=== PATIENT | female | born 1980 | race Caucasian/White ===

== ENCOUNTER 2020-05-29 16:13 | Outpatient (CLI) | payer OTHER, SELFPAY ==
--- NOTE | ~2020-05-29 | MM_ITS ---
EXAMINATION: MM screening drew BI w shelly HISTORY: Screening mammogram TECHNIQUE: Craniocaudal and mediolateral oblique 3-D tomosynthesis images were obtained and synthetic 2-D images were generated. CAD analysis was submitted and interpreted. COMPARISON: None, baseline BREAST PARENCHYMAL COMPOSITION: The breasts are heterogeneously dense, which may obscure small masses . FINDINGS: There is no evidence of suspicious mass, calcification, or architectural distortion to sugg est malignancy in either breast. IMPRESSION: 1. No mammographic evidence of malignancy. 2. Recommend routine screening mammography in one year. BI-RADS Category 1: Negative Reviewed, dictated and finalized at location A. IC RELATIONS COUNSELOR
== END 2020-05-29 16:14 | disposition home or self-care (01) ==
PROVIDERS: Visit Provider Obstetrics & Gynecology
DX: Z12.31 Encounter for screening mammogram for malignant neoplasm of breast (principal)
CPT/HCPCS: 77063; 77067

== ENCOUNTER 2022-06-27 11:11 | Outpatient (CLI) | payer OTHER, SELFPAY ==
--- NOTE | ~2022-06-27 | MM_ITS ---
EXAMINATION: MM screening drew BI w shelly HISTORY: Screening TECHNIQUE: Craniocaudal and mediolateral oblique 3-D tomosynthesis images were obtained and synthetic 2-D images were generated. CAD analysis was submitted and interpreted. COMPARISON: 05/29/2020 BREAST PARENCHYMAL COMPOSITION: The breasts are heterogeneously dense, which may obscure small masses . FINDINGS: There is no evidence of suspicious mass, calcification, or architectural distortion to sugg est malignancy in either breast. There has been no suspicious interval change. IMPRESSION: 1. No mammographic evidence of malignancy. 2. Recommend routine screening mammography in one year. BI-RADS Category 1: Negative Reviewed, dictated and finalized at location B. MIZE ARCHITECT
== END 2022-06-27 11:12 | disposition home or self-care (01) ==
LOC: ANHIMG 11:13
PROVIDERS: PCP Physician Assistant Medical; Visit Provider Obstetrics & Gynecology
DX: Z12.31 Encounter for screening mammogram for malignant neoplasm of breast (principal)
CPT/HCPCS: 77063; 77067

== ENCOUNTER 2022-08-25 16:36 | Emergency (ER) | payer OTHER, SELFPAY ==
--- NOTE | 2022-08-25 16:43 | ED.URI ---
HPI - URI/Sore Throat General Chief Complaint: Upper Respiratory Infection Stated Complaint: sore throat, back pain Time Seen by Provider: 08/25/22 16:44 Source: patient Mode of arrival: ambulatory Limitations: no limitations History of Present Illness HPI Narrative: Ms. Paige is a 41-year-old female patient presenting to the clinic today with complaints sore throat and back ache times 4 days. She reports no fever or chills. She reports that her son had tested positive for strep on Thursday. She does report some nasal congestion. MD elicited complaint: sore throat and nasal congestion Related Data Home Medications Medication Instructions Recorded Confirmed clonazepam 0.5 mg tablet 0.5 mg PO HS 08/25/22 08/25/22 etonogestrel 0.12 mg-ethinyl 1 vag ring vaginal MONTHLY 08/25/22 08/25/22 estradiol 0.015 mg/24 hr vaginal ring (EluRyng) Allergies Allergy/AdvReac Type Severity Reaction Status Date / Time No Known Allergies Allergy Mild Unverified 08/25/22 16:42 Review of Systems Review of Systems: Pertinent positives per HPI. Patient denies any fever, chills, rash, headache, visual changes, dizziness, cough, shortness of breath, chest pain, palpitations, nausea, vomiting, diarrhea, constipation, abdominal pain, or any urinary issues. PMFSH Comments At the time of my signature, I reviewed and agree with the nursing past medical, surgical, social, and family history. There is no relevant family history pertinent to the patient complaint. Exam Narrative: General: Well-developed, well nourished, in no apparent distress Head: Normocephalic, atraumatic Eyes: Pupils equally round and reactive to light bilaterally, EOM intact, sclera and conjunctive clear, no discharge, lids normal Ears: TMs intact and clear, ear canals clear, no drainage, grossly hearing normal. Nose: Nares patent, no discharge, no inflammation, no sinus tenderness. Mouth: Oral pharynx without lesions or masses, good dentition, MMM. Oropharynx reveals bilateral tonsillar enlargement Neck: Supple, trachea midline, enlargement of anterior cervical nodes, no thyroid masses or goiter palpable. Cardio: Regular rate and rhythm, s1 and s2 normal, no murmur appreciated. Resp: Clear to auscultation bilaterally, no rhonchi, rales, wheezing or rubs Course Course Emergency Course: Portions of this record may have been created with voice recognition software. Level of Care: Express Care Visit Vital Signs Vital signs: Vital Signs Temperature 36.8 C 08/25/22 16:51 Pulse Rate 91 08/25/22 16:51 Respiratory Rate 16 08/25/22 16:51 Blood Pressure 125/81 08/25/22 16:51 Pulse Oximetry 100 08/25/22 16:51 Temperature 36.8 C 08/25/22 16:51 Pulse Rate 91 08/25/22 16:51 Respiratory Rate 16 08/25/22 16:51 Blood Pressure 125/81 08/25/22 16:51 Pulse Oximetry 100 08/25/22 16:51 Vital signs reviewed MDM - URI/Sore Throat MDM Narrative Medical decision making narrative: At the time of visit patient is resting comfortably on the exam table. Strep screen is negative in the clinic today. Will send for culture. I suspect patient has URI/pharyngitis/viral syndrome. Supportive measures were discussed with the patient she voiced understanding discharge instructions and agrees to treatment plan. Differential Diagnosis Differential diagnosis: Likely sinusitis, viral infection, influenza and pharyngitis Lab Data Labs: Strep Screen Presumptive Negative *(Reference Range: Negative)* Discharge Plan Discharge Clinical Impression: Viral infection Pharyngitis Qualifiers: Pharyngitis/tonsillitis etiology: unspecified etiology Qualified Code(s): J02.9 - Acute pharyngitis, unspecified Upper respiratory infection Qualifiers: URI type: unspecified URI Qualified Code(s): J06.9 - Acute upper respiratory infection, unspecified Patient Disposition: Home, Self-Care
[2022-08-25 16:51] VITALS: BP 125/81; PULSE 91; RESP 16; TEMP 36.8; O2SAT 100
== END 2022-08-25 17:04 | disposition home or self-care (01) ==
PROVIDERS: Emergency Provider Nurse Practitioner Family; PCP Physician Assistant Medical
DX: B34.9 Viral infection, unspecified (principal); J02.9 Acute pharyngitis, unspecified; J06.9 Acute upper respiratory infection, unspecified; F41.9 Anxiety disorder, unspecified; F41.0 Panic disorder [episodic paroxysmal anxiety]
CPT/HCPCS: 87081; 87880; 99213; G0463

== ENCOUNTER 2024-05-19 13:21 | Outpatient (CLI) | payer OTHER, SELFPAY ==
[2024-05-19 14:05] LABS: Hematocrit 41.8 % (37.0-47.0); Hemoglobin 13.9 g/dL (12.0-15.0)
== END 2024-05-19 13:22 | disposition home or self-care (01) ==
LOC: ANHSURGERY 13:24
PROVIDERS: PCP Registered Nurse; Visit Provider Obstetrics & Gynecology
DX: R58 Hemorrhage, not elsewhere classified (principal)
CPT/HCPCS: 36415; 85014; 85018

== ENCOUNTER 2024-05-27 04:45 | Day surgery (SDC) | payer OTHER, SELFPAY ==
[2024-05-18 13:54] VITALS: BMI 22.4
--- NOTE | 2024-05-18 14:03 | SUR.PREOP ---
Report to the Outpatient Waiting Room, entrance under the green pavilion located off [facility], at time 0630 on date 05/27/24. Planned Procedure Time: 0830.? Time changes happen often and if your time is changed the preop area will call you the afternoon before. - You and your visitor will be asked to self-screen and do not enter if you have any COVID symptoms. Please call surgeon if you need to reschedule. - A mask is optional within the hospital at this time. Patients may have clear liquids (water, carbonated beverages, clear teas, apple juice) until 3 hours prior to surgery with a maximum of 20 ounces. - No food from midnight until time of surgery and no smoking - Infants may have breast milk until 4 hours before surgery, formula 6 hours prior to surgery. - Children will be allowed to drink immediately following surgery.? If applicable, please bring a bottle or sippy cup to assist with drinking. Juice, water, soda, and popsicles are readily available.? For infants on formula, please bring formula the day of surgery.? Pacifiers are allowed. Take only the following medications with a SIP of water on the morning of surgery: ___duloxetine, control pill DO NOT STOP ANY OF YOUR OTHER PRESCRIPTION MEDICATIONS PRIOR TO SURGERY EXCEPT THE FOLLOWING Medications to discontinue per physician vitamins for 3 days Date to take last dose Please no make-up, nail faroese, hairspray, perfume, deodorant, or body powder the day of surgery.? No jewelry (including any body piercings) or valuables the day of surgery, leave them at home.? Please take a shower or bath the night before, or the morning of, surgery with an antibacterial soap.? Wear comfortable, loose fitting clothing.? Children are encouraged to wear pajamas. - Jewelry must be removed prior to entering the operating room.? Rings and piercings that are not removed may be cut off. - The hospital will not accept responsibility for valuables.? - Please leave all valuables, including medications, at home the day of surgery. If you are going home after surgery, a licensed lifter driver must drive you home.? - NO public transportation without another adult if you receive anesthesia. - We recommend that an adult stay with you for 24 hours following discharge. - We also recommend that you do not drive, make important decision, drink alcoholic beverages, or take any drugs that were not prescribed by your health care provider for at least 24 hours after your discharge time. For Pediatric surgeries, we recommend two adults accompany the child home. Follow any additional instructions given to you from your surgeon. Telephone instructions given to ___patient___and asked if any additional questions and then verbalized understanding. Patient advised to call surgeon office or pre surgery nurse liaison [phone] if any additional questions.
--- NOTE | 2024-05-25 11:31 | P.HP_ITS ---
H&P: HPI History of Present Illness Date/Time: 05/25/24 11:31 Chief Complaint: Excessive vaginal bleeding Narrative: 43-year-old female admitted for hysteroscopy dilatation curettage and Gissell ablation. She had 3 vaginal deliveries. She uses vasectomy for control she will not undergo tubal ligation but understands that this is not a form of control. Risks and benefits reviewed including not exclusive of , aspiration pneumonia, bleeding, transfusion, perforation injury to bowel, bladder, ureters, or other internal organs with need for open laparotomy. She received the ACOG handout entitled hysteroscopy and dilatation curettage respectively. She had all questions answered and asked to proceed PENDING SALE TO [facility] Social History Social History Smoking status: Never smoker Living arrangements: with family Meds Home Medications and Allergies Home Medications Medication Instructions Recorded Confirmed Type erenumab-aooe 70 mg/mL 70 mg subcut MONTHLY #1 mL 08/13/22 05/18/24 Rx subcutaneous auto-injector (Aimovig Autoinjector) clonazepam 0.5 mg tablet 0.5 mg PO HS 08/25/22 05/18/24 History etonogestrel 0.12 mg-ethinyl 1 vag ring vaginal MONTHLY 08/25/22 05/18/24 History estradiol 0.015 mg/24 hr vaginal ring (EluRyng) Allergy Capsule 1 tab-cap BYMOUTH DAILY 05/18/24 05/18/24 History duloxetine 30 mg capsule,delayed 30 mg PO DAILY 05/18/24 05/18/24 History release duloxetine 60 mg capsule,delayed 60 mg PO DAILY 05/18/24 05/18/24 History release multivitamin 1 tablet PO DAILY 05/18/24 05/18/24 History rizatriptan 10 mg tablet 10 mg PO DAILY PRN Migraine 05/18/24 05/18/24 History Headache Allergies Allergy/AdvReac Type Severity Reaction Status Date / Time No Known Allergies Allergy Mild Verified 05/18/24 14:06 Exam Const: General: cooperative, healthy appearing, comfortable and average body habitus Orientation/consciousness: oriented to person, oriented to place and oriented to time Resp: Effort & Inspection: normal respiratory effort Cardio: Rate: regular rate Rhythm: regular rhythm Heart sounds: S1 normal heart sound present and S2 normal heart sound present GI: Inspection: normal to inspection : External Female Exam: normal external appearance Speculum Exam - Vagina : normal appearance of the vagina Speculum Exam - Cervix: normal appearance of the cervix Bimanual exam- vagina & uterus: uterine size normal Bimanual Exam- Adnexa, other: normal adnexae Assessment and Plan Assessment and plan (1) Excessive bleeding: Code(s): R58 - Hemorrhage, not elsewhere classified Status: Acute Assessment and Plan: Hysteroscopy/dilatation curettage/Gissell ablation
--- NOTE | 2024-05-27 07:09 | WPDHPUPDATE1 ---
History and Physical Update Update Date/Time: 05/27/24 07:09 History and Physical has been reviewed, including an updated exam of the patient. There are NO changes in the patient's condition. Risks, benefits, and alternatives have been discussed and questions answered. Patient agrees to proceed with procedure.
[2024-05-27 07:10] VITALS: BP 128/91; PULSE 74; RESP 14; TEMP 36; O2SAT 100
[2024-05-27] MEDS: ACETAMINOPHEN 500 MG TABLET 1000 MG PO (07:10)
[2024-05-27] MEDS: LACTATED RINGERS 1,000 ML 30 ML IV CONT (07:10)
--- NOTE | 2024-05-27 07:48 | P.PNAN_ITS ---
Anes - Initial Pre Proc Eval Procedure: Operation Date: 05/27/24 08:30 Proposed Procedures p Hysteroscopy Dilation and Curettage with Gissell Endometrial Ablation - Ar Heck MD Date/Time: 05/27/24 07:48 Surgeon: Ar Heck MD Pre Op Diagnosis: Excessive Bleed Patient Data Age: 43 Gender: F Height: 1.65 m Weight: 66.55 kg Last Vital Signs Temp 36.0 C L 05/27/24 07:10 Pulse 74 05/27/24 07:10 Resp 14 05/27/24 07:10 BP 128/91 H 05/27/24 07:10 Pulse Ox 100 05/27/24 07:10 O2 Del Method Room Air 05/27/24 07:10 Allergies Allergy/AdvReac Type Severity Reaction Status Date / Time No Known Allergies Allergy Mild Verified 05/27/24 07:27 Home Medications Medication Instructions Recorded Confirmed Type erenumab-aooe 70 mg/mL 70 mg subcut MONTHLY #1 mL 08/13/22 05/18/24 Rx subcutaneous auto-injector (Aimovig Autoinjector) clonazepam 0.5 mg tablet 0.5 mg PO HS 08/25/22 05/18/24 History etonogestrel 0.12 mg-ethinyl 1 vag ring vaginal MONTHLY 08/25/22 05/27/24 H istory estradiol 0.015 mg/24 hr vaginal ring (EluRyng) Allergy Capsule 1 tab-cap BYMOUTH DAILY 05/18/24 05/18/24 History duloxetine 30 mg capsule,delayed 30 mg PO DAILY 05/18/24 05/18/24 History release duloxetine 60 mg capsule,delayed 60 mg PO DAILY 05/18/24 05/27/24 History release multivitamin 1 tablet PO DAILY 05/18/24 05/18/24 History rizatriptan 10 mg tablet 10 mg PO DAILY PRN Migraine 05/18/24 05/18/24 History Headache hydrocodone 5 mg-acetaminophen 325 1 tablet PO Q4H PRN pain #20 tabs 05/27/24 Rx mg tablet Patient hx anesthesia problems: none Family hx anesthesia problems: none Results Review: All pre-operative results and documents have been reviewed as part of the pre- operative evaluation. [facility] Past Medical History Medical History (Updated 11/15/24 @ 07:49 by Ar Blakely MD) Panic anxiety syndrome Surgical History Surgical History (Updated 05/27/24 @ 07:51 by Ar Blakely MD) History of D&C Social History Social History Smoking status: Never smoker Living arrangements: with family Judith Wright Final PreProcedure Day of Procedure 05/27/24 07:48 Patient weight: normal Heart: regular rate and rhythm Lungs: clear to auscultation Airway: Mallampati scale class 1 Neurological: alert and oriented Last oral intake: >/= 8 hours ASA classification: II Emergent: no Anesthetic plan: proceed Anesthesia type and monitoring: general GIVS and standard monitoring Results Review: All pre-operative results and documents have been reviewed as part of the pre- operative evaluation. Informed Consent: The patient's anesthetic plan and its attendant risks and benefits were discussed with the patient/family/POA. Questions were solicited and answers provided to the satisfaction of the patient/family/POA.
[2024-05-27] MEDS: LIDOCAINE HCL 1% LOCAL INJ 20 ML VIAL 10 ML INFILTRATE (08:15)
[2024-05-27 08:28] VITALS: BP 143/93; PULSE 75; RESP 16; O2SAT 100
--- NOTE | 2024-05-27 08:28 | W.PM.PROC2 ---
Procedure Note - Detailed Date of Procedure 05/27/24 Pre-op Diagnosis Excessive Bleed Post-op Diagnosis Same Procedure Performed Dressed B/ dilatation curettage/ Gissell ablation Surgeon Ar Heck MD Anesthesia MAC and Local Indications 43-year-old female with excessive heavy bleeding Findings uterus sounded to 8cm. Thick endometrial tissue. No evident abnormalities Description of Procedure the patient was prepped draped in the normal sterile fashion placed in the dorsal lithotomy position. Under excellent IV sedation weighted speculum placed in posterior fornix vagina. Anterior lip of cervix grasped with single-tooth tenaculum. 2.5cc 1% xylocaine anesthesia placed at 2, 4, 8, 10:00 a.m. of the cervix. Uterus sounded 8cm. Serial dilatation fragmented dilators performed followed passes the 5mm visualizing hysteroscope using normal saline as visualizing medium. Thick endometrial tissue was seen but no other abnormalities each fallopian tube os could be seen and the uterus was then scraped over the entire 360? until good grating sound was heard. The instruments withdrawn and the Gissell instrument placed at the appropriate this was burned [id number] was removed she tolerated the procedure well blood loss estimated 5cc all sponge, needle, instrument counts were correct. There were no immediate complications Estimated Blood Loss 5 Drains No Packing No Pathology Yes Complications No immediate complications Condition Stable Disposition PACU
[2024-05-27 08:50] VITALS: BP 146/95; PULSE 70; RESP 16; O2SAT 100
[2024-05-27] MEDS: oxyCODONE HCL (*CRX) 5 MG TAB IR PO (08:55)
[2024-05-27 09:20] VITALS: BP 146/97; PULSE 70; RESP 16
[2024-05-30 10:01] LABS: BEDSIDEPREGUCG Negative (Negative)
== END 2024-05-27 09:33 | disposition home or self-care (01) ==
PROVIDERS: PCP Registered Nurse; Visit Provider Obstetrics & Gynecology
PROC: 0U5B8ZZ Destruction of Endometrium, Via Natural or Artificial Opening Endoscopic (ICD-10-PCS; CPT 58563; principal; 2024-05-27 08:30)
DX: N93.9 Abnormal uterine and vaginal bleeding, unspecified (principal); F41.0 Panic disorder [episodic paroxysmal anxiety]
CPT/HCPCS: 58563; 88305; A9270; J1100; J1885; J2003; J2250; J2405; J2704; J3010; J7030; J7120

== ENCOUNTER 2024-11-25 10:05 | Outpatient (CLI) | payer OTHER, SELFPAY ==
--- NOTE | ~2024-11-25 | MM_ITS ---
EXAMINATION: MM screening drew BI w shelly HISTORY: Screening TECHNIQUE: Craniocaudal and mediolateral oblique 3-D tomosynthesis images were obtained and synthetic 2-D images were generated. CAD analysis was submitted and interpreted. COMPARISON: Comparison to multiple prior studies sequentially, with oldest reviewed study dated 05/13. BREAST PARENCHYMAL COMPOSITION: Dense: The breasts are heterogeneously dense, which may obscure small masses FINDINGS: There is no evidence of suspicious mass, calcification, or architectural distortion to sugg est malignancy in either breast. There has been no suspicious interval change. IMPRESSION: 1. No mammographic evidence of malignancy. 2. Recommend routine screening mammography in one year. BI-RADS Category 1: Negative Reviewed, dictated and finalized at location A.
--- OUTSIDE RECORDS SUMMARY | 2024-11-25 10:14 | XMS_ITS | Referral Summary ---
Author Organization [facility] [address] Address [address] [place] [address] Care Team Providers Care Hand Upper And Bottom Lacer Name Role Phone Milo Jones MD Primary Care Provider [phone] Encounters Date Type Department Care Team Description 09/15/2024 4:30 PM IN FLIGHT TECHNICIAN Telemedicine [facility] Neuro Sleep [address] [facility] 6th Floor [address] [place] [address] Beck Manriquez MD Other parasomnia (Primary Dx); Other migraine without status migrainosus, not intractable; Anxiety disorder, unspecified type from Last 3 Months Allergies No known active allergies Medications clonazePAM (KlonoPIN) 0.5 mg tablet TAKE 2 TABLETS(1 MG) BY MOUTH EVERY NIGHT NEEDED FOR ANXIETY 60 tablet [address] (CYMBALTA) 30 mg capsule Take 1 capsule (30 mg total) by mouth daily [address] (CYMBALTA) 60 mg capsule Take 1 capsule (60 mg total) by mouth daily 1 Active Aimovig Autoinjector 70 mg/mL auto-injector subcutaneous injection Inject 1 mL (70 mg total) under the skin every 30 (thirty) days 2 Active norgestimate-ethi nyl estradioL (ORTHO-CYCLEN) 0.25-35 mg-mcg per tablet Take 1 tablet by mouth daily 4 Active rizatriptan (MAXALT) 10 mg tablet Take 1 tablet (10 mg total) by mouth daily as needed 4 Active Active Problems Problem Noted Date Diagnosed Date Hx of migraine headaches 09/25/2020 Chronic frontal sinusitis 09/25/2020 Other parasomnia 02/02/2019 Migraine headache 12/30/2018 Anxiety disorder 12/30/2018 Social History Tobacco Use Types Packs/Day Years Used Date Smoking Tobacco: Never Smokeless Tobacco: Never Comments Unknown Sex and Gender Information Value Date Recorded Sex Assigned at Not on file Legal Sex Female 9:15 AM CDT Gender Identity Female 06/21/2020 2:19 PM IN FLIGHT TECHNICIAN Sexual Orientation Straight 06/21/2020 2: 19 PM IN FLIGHT TECHNICIAN Last Filed Vital Signs Vital Sign Reading Time Taken Comments Blood Pressure 115/80 05/19/2019 2:34 PM IN FLIGHT TECHNICIAN Pulse 85 05/19/2019 2:34 PM IN FLIGHT TECHNICIAN Temperature 36.3 C (97.4 F) 09/25/2020 4:00 PM CDT Respiratory Rate 18 01/26/2019 9:38 PM CDT Oxygen Saturation 98% 05/19/2019 2:34 PM IN FLIGHT TECHNICIAN Inhaled Oxygen Concentration - - Weight 61.2 kg (135 lb) 09/25/2020 4:00 PM CDT Height 165.1 cm (5' 5 ) 09/25/2020 4:00 PM CDT Body Mass Index 22.47 09/25/2020 4:00 PM CDT Plan of Treatment Not on file Insurance [employer] Care Teams Hand Upper And Bottom Lacer Relationship Specialty Start Date End Date Milo Jones MD [facility] [place] [address] PCP - General Internal Medicine 12/30/18
--- OUTSIDE RECORDS SUMMARY | 2024-11-25 10:14 | XMS_ITS | Encounter Summary ---
Author Organization [facility] Address [address] [place] [address] Care Team Providers Care Commissary Officer Name Role Phone Dorothy Mcmillan APRN Primary Care Provider [phone] Encounter Details Date Type Department Care Team (Late st Contact Info) Description 12/22/2022 [employer] Message Enc [facility] Family & Internal Medicine [facility] [address] [place] [address] Dorothy Mcmillan APRN [id number] [facility] [address] [place] [address] [facility] [place] Social History Tobacco Use Types Packs/Day Years Used Date Smoking Tobacco: Never Alcohol Use Standard Drinks/Week Comments Not Currently 0 (1 standard drink = 0.6 oz pur e alcohol) social drinker PHQ-2 Answer Date Recorded Patient Health Questionnaire-2 Score 0 11/03/2022 Comments No Sex and Gender Information Value Date Recorded Sex Assigned at Not on file Legal Sex Female 5:13 PM CDT Gender Identity Not on file Sexual Orientation Not on file documented as of this encounter Progress Notes * Casey Escobar RN - 12/22/2022 1:43 PM CDT Please advise. documented in this encounter Plan of Treatment Not on file documented as of this encounter Visit Diagnoses Not on filedocumented in this encounter Care Teams Commissary Officer Relationship Specialty Start Date End Date Dorothy Mcmillan APRN [id number] [place] [address] PCP - General 09/30/22 documented as of this encounter
--- OUTSIDE RECORDS SUMMARY | 2024-11-25 10:14 | XMS_ITS | Clinical Summary ---
Author Organization [facility] [address] Address [address] [place] [address] Care Team Providers Care Supervisor Meter [employer] Name Role Phone Milo Jones MD Primary Care Provider [phone] Allergies No known active allergies Medications clonazePAM [...] 02/02/2019 Migraine headache 12/30/2018 Anxiety disorder 12/30/2018 Encounters Date Type Department Care Team Description 09/15/2024 4:30 PM SOLAR SITE ASSESSMENT SPECIALIST Telemedicine [facility] Neuro Sleep [address] [facility] 6th [address] [place] [address] Beck Manriquez MD Other parasomnia (Primary Dx); Other migraine without status migrainosus, not intractable; Anxiety disorder, unspecified type from Last 3 Months Medical History Medical History Date Comments Allergic rhinitis Anxiety Sinusitis Family History Medical History Relation Name Comments Cancer Father Relation Name Status Comments Father Social History Tobacco Use Types Packs/Day Years Used Date Smoking Tobacco: Never Smokeless Tobacco: Never Comments Unknown Sex and Gender Information Value Date Recorded Sex Assigned at Not on file Legal Sex Female 9:15 AM CDT Gender Identity Female 06/21/2020 2:19 PM SOLAR SITE ASSESSMENT SPECIALIST Sexual Orientation Straight 06/21/2020 2: 19 PM SOLAR SITE ASSESSMENT SPECIALIST Obstetrics History Last Filed Vital Signs Vital Sign Reading Time Taken Comments Blood Pressure 115/80 05/19/2019 2:34 PM SOLAR SITE ASSESSMENT SPECIALIST Pulse 85 05/19/2019 2:34 PM SOLAR SITE ASSESSMENT SPECIALIST Temperature 36.3 C (97.4 F) 09/25/2020 4:00 PM CDT Respiratory Rate 18 01/26/2019 9:38 PM CDT Oxygen Saturation 98% 05/19/2019 2:34 PM SOLAR SITE ASSESSMENT SPECIALIST Inhaled Oxygen Concentration - - Weight 61.2 kg (135 lb) 09/25/2020 4:00 PM CDT Height 165.1 cm (5' 5 ) 09/25/2020 4:00 PM CDT Body Mass Index 22.47 09/25/2020 4:00 PM CDT Plan of Treatment Health Maintenance Due Date Last Done Comments Breast Cancer Screening-Mammogram 1979 Cervical Cancer Screening 1979 Depression Screening 1979 Hepatitis C Screening 1980 DTaP/Tdap/Td Vaccine (1 - Tdap) 11/28/1990 Varicella Vaccines (1 of 2 - 13+ 2-dose series) 11/28/1992 Hepatitis B Screening 11/28/1997 Regular Well Visit/Exam 18-64 11/28/1997 Covid-19 Vaccine (2023-2 5 season) 2024 09/14/2020, 08/17/2020 Influenza Vaccine (Season Ended) 2025 04/01/2020, 05/30/2017, 04/12/2013 HPV Vaccines Aged Out No longer eligi ble based on patient's age to complete this topic Pneumococcal vaccine <65 Aged Out No longer eligible based on patient's age to complete this topic Insurance [employer] Care Teams Supervisor Meter Shop Relationship Specialty Start Date End Date Milo Jones MD [address] [place] [id number] PCP - General Internal Medicine 12/30/18
--- OUTSIDE RECORDS SUMMARY | 2024-11-25 10:14 | XMS_ITS | Encounter Summary ---
Author Organization [facility] Address [address] [place] [id number] Care Team Providers Care Refractory Mixer Name Role Phone Dorothy Mcmillan APRN Primary Care Provider [phone]- [phone] Encounter Details Date Type Department Care Team (Late st Contact Info) Description 03/29/2023 WhoAPI Message Enc [facility] Family & Internal Medicine [facility] [address] [place] [address] Dorothy Mcmillan APRN [address] [facility] [address] [place] [address] [id number] Sinus Infection Social History Tobacco Use Types Packs/Day Years Used Date Smoking Tobacco: Never Alcohol Use Standard Drinks/Week Comments Not Currently 0 (1 standard drink = 0.6 oz pur e alcohol) social drinker PHQ-2 Answer Date Recorded Patient Health Questionnaire-2 Score 0 02/12/2023 Comments No Sex and Gender Information Value Date Recorded Sex Assigned at Not on file Legal Sex Female 5:13 PM CDT Gender Identity Not on file Sexual Orientation Not on file documented as of this encounter Plan of Treatment Not on file documented as of this encounter Visit Diagnoses Not on filedocumented in this encounter Care Teams Refractory Mixer Relationship Specialty Start Date End Date Dorothy Mcmillan APRN [id number] [facility] [address] [place] [id number] PCP - General 09/30/22 documented as of this encounter
--- OUTSIDE RECORDS SUMMARY | 2024-11-25 10:14 | XMS_ITS | Clinical Summary ---
Author Organization [facility] Address [address] [place] [id number] Care Team Providers Care Petroleum Engineering Professor Name Role Phone Dorothy Mcmillan APRN Primary Care Provider [phone]- [phone] Allergies No known active allergies Medications clonazePAM (KLONOPIN) 0.5 MG tablet Take 2 tablets (1 mg total) by mouth nightly at bedtime. 2 Active AIMOVIG 70 MG/ML injection (autoinjector)Indic ations:Encounter for weight management Inject 1 mL (70 mg total) into the skin every 30 (thirty) days. 1 mL 5 4 Active olopatadine (PATANOL) 0.1 % ophthalmic solutionIndications :Acute conjunctivitis of right eye, unspecified acute conjunctivitis type Place 1 drop into the right eye 2 (two) times daily. 5 mL 4 Active DULoxetine (CYMBALTA) 30 MG capsuleIndications: Generalized anxiety disorder Take 1 capsule (30 mg total) by mouth daily. 14 capsule 4 Active DULoxetine (CYMBALTA) 60 MG capsuleIndications: Generalized anxiety disorder Take 1 capsule (60 mg total) by mouth daily. 14 capsule 4 Active norgestimate-ethiny l estradiol (ESTARYLLA) 0.25-35 MG-MCG tabletIndications:E ncounter for other contraceptive management Take 1 tablet by mouth daily. 28 tablet 4 Active rizatriptan (MAXALT) 10 MG tabletIndications:E ncounter for weight management Take 1 tablet (10 mg total) by mouth once as needed. 30 tablet 5 Active DULoxetine (CYMBALTA) 30 MG capsuleIndications: Generalized anxiety disorder Take 1 capsule (30 mg total) by mouth daily. 90 capsule 1 5 Active DULoxetine (CYMBALTA) 60 MG capsuleIndications: Generalized anxiety disorder TAKE 1 TABLET BY MOUTH EVERY DAY WITH 30MG 90 capsule 5 Active norgestimate-ethiny l estradiol (ESTARYLLA) 0.25-35 MG-MCG tabletIndications:E ncounter for other contraceptive management Take 1 tablet by mouth daily. 84 tablet 1 5 Active doxycycline hyclate (VIBRAMYCIN) 100 MG capsuleIndications: Acute non-recurrent frontal sinusitis Take 1 capsule (100 mg total) by mouth 2 (two) times daily for 10 days. 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/2019 Anxiety disorder 12/30/2018 Migraine headache 12/30/2018 Encounters Date Type Department Care Team Description 10/17/2024 8:40 AM CDT Office Visit [facility] Family & Internal Medicine [address] [address] Rowena Maxwell, [place] Sinus Problem (Sinus pressure/discomfort x 1 week) 10/17/2024 Travel from Last 3 Months Immunizations Immunization Administration Dates Next Due Influenza (Generic) 05/30/2017,04/12/2013 Influenza Adult (Generic) 04/01/2020 MODERNA COVID-19 (12+) MRNA, LNP-S, PF, 100 MCG/ 0.5 ML DOSE 09/14/2020,08/17/2020 Family History Medical History Relation Comments None Daughter Alzheimer's disease Mother None Son Relation Status Comments Daughter Mother Son Social History Tobacco Use Types Packs/Day Years Used Date Smoking Tobacco: Never Tobacco Cessation:Counseling Given: No Alcohol Use Standard Drinks/Week Comments Yes 3 (1 standard drink = 0.6 oz pur e alcohol) social drinker PHQ-2 Answer Date Recorded Patient Health Questionnaire-2 Score 0 10/17/2024 Comments No Sex and Gender Information Value Date Recorded Sex Assigned at Not on file Legal Sex Female 5:13 PM CDT Gender Identity Not on file Sexual Orientation Not on file Last Filed Vital Signs Vital Sign Reading Time Taken Comments Blood Pressure 132/82 10/17/2024 8:43 AM CDT Pulse 80 10/17/2024 8:38 AM CDT Temperature 36.3 C (97.4 F) 10/17/2024 8:38 AM CDT Respiratory Rate 18 10/17/2024 8:38 AM CDT Oxygen Saturation 98% 10/17/2024 8:38 AM CDT Inhaled Oxygen Concentration - - Weight 68 kg (150 lb) 10/17/2024 8:38 AM CDT Height 165.1 cm (5' 5 ) 10/17/2024 8:38 AM CDT Body Mass Index 24.96 10/17/2024 8:38 AM CDT Plan of Treatment Health Maintenance Due Date Last Done Comments Cervical Cancer Screening Pa p Smear (Age 30 to 64) Every 3 Years 1979 Hepatitis C 11/28/1997 DTaP, Tdap and Td Vaccines ( 1 - Tdap) 11/28/1998 Hepatitis B Vaccines (1 of 3 - 19+ 3-dose series) 11/28/1998 Cervical Cancer Screening Pa p with HPV Testing (Age 30 to 64) Every 5 Years 11/28/2009 Cervical Cancer Screening wi HPV 11/28/2009 Mammogram Screening 2019 COVID-19 Vaccine (3 - 2023-2 5 season) 2024 09/14/2020, 08/17/2020 Annual Physical 02/25/2025 02/26/2024 PHQ-2 (Physician [place]) Completed 10/17/2024 HPV Vaccines Aged Out No longer eligi ble based on patient's age to complete this topic Meningococcal B Vaccine Aged Out No l onger eligible based on patient's age to complete this topic Meningococcal Vaccine Aged Out No tang remy eligible based on patient's age to complete this topic Pneumococcal Vaccine: Pediatrics (0 to 5 Years) and At-Risk Patients (6 to 49 Years) Aged Out No longer eligible b ased on patient's age to complete this topic RSV Immunizations Under 20 Months Aged Out No longer eligible b ased on patient's age to complete [place] [address] [employer] Care Teams Petroleum Engineering Professor Relationship Specialty Start Date End Date Dorothy Mcmillan APRN [id number] [facility] [address] [place] [address] PCP - General 09/30/22
== END 2024-11-25 10:06 | disposition home or self-care (01) ==
LOC: ANHIMG 10:07
PROVIDERS: PCP Registered Nurse; Visit Provider Obstetrics & Gynecology
DX: Z12.31 Encounter for screening mammogram for malignant neoplasm of breast (principal)
CPT/HCPCS: 77063; 77067